=== PATIENT | male | born 1995 | race Caucasian/White ===

== ENCOUNTER 2022-10-08 11:44 | Inpatient (IN) | payer OTHER ==
[~2022-10-08] VITALS: Ht 170.2 cm; Wt 87.3 kg
[2022-10-08 12:36] LABS: HEMATOCRIT 47.6 % (42.0-52.0); HEMOGLOBIN 16.1 g/dl (13.5-17.5); MEAN CORPUSCULAR HEMOGLOBIN 30.4 pg (27.0-33.0); MEAN CORPUSCULAR HGB CONC 33.8 g/dl (32.0-36.5); MEAN CORPUSCULAR VOLUME 89.8 fl (80.0-96.0); PLATELET COUNT, AUTOMATED 351 10^3/uL (150-450); WHITE BLOOD COUNT 6.7 10^3/uL (4.0-10.0)
[2022-10-08 12:59] LABS: ETHYL ALCOHOL (ETHANOL) < 0.003 % (0.000-0.010)
[2022-10-08 13:01] LABS: SALICYLATE LEVEL < 3.0 MG/DL (<30)
[2022-10-08 13:02] LABS: ACETAMINOPHEN LEVEL < 2.0 UG/ML (10.0-20.0); ALBUMIN 4.7 G/DL (3.2-5.2); ALKALINE PHOSPHATASE 106 U/L (46-116); ALT/SGPT 31 U/L (7.0-40); AST/SGOT 16 U/L (<34); BILIRUBIN,DIRECT 0.2 MG/DL (<0.4); BILIRUBIN,TOTAL 0.5 MG/DL (0.3-1.2); BLOOD UREA NITROGEN 16 MG/DL (9-23); CALCIUM LEVEL 9.8 MG/DL (8.5-10.1); CARBON DIOXIDE LEVEL 25 MMOL/L (20-31); CHLORIDE LEVEL 106 MMOL/L (98-107); CREATININE FOR GFR 0.87 MG/DL (0.70-1.30); GLOMERULAR FILTRATION RATE > 60.0 (>60); GLUCOSE, FASTING 72 MG/DL (60-100); POTASSIUM SERUM 4.1 MMOL/L (3.5-5.1); SODIUM LEVEL 136 MMOL/L (136-145); TOTAL PROTEIN 7.8 G/DL (5.7-8.2)
[2022-10-08 13:04] LABS: THYROID STIMULATING HORMONE 1.618 uIU/ML (0.55-4.78)
[2022-10-08 13:10] LABS: AMPHETAMINES LEVEL URINE NEGATIVE (NEGATIVE)
[2022-10-08 13:11] LABS: BARBITURATES URINE NEGATIVE (NEGATIVE); BENZODIAZEPINES URINE NEGATIVE (NEGATIVE); CANNABINOIDS URINE NEGATIVE (NEGATIVE); COCAINE METABOLITE URINE NEGATIVE (NEGATIVE); METHADONE URINE NEGATIVE (NEGATIVE); OPIATES URINE NEGATIVE (NEGATIVE); PHENCYCLIDINE URINE NEGATIVE (NEGATIVE)
[2022-10-08] MEDS ORDERED: traZODone 50 MG TAB PO PRN (13:50)
[2022-10-08] MEDS ORDERED: MAALOX 30 ML SUSP *UDC PO PRN (13:50)
[2022-10-08] MEDS ORDERED: MOM 30ML SUSPENSION UDC PO PRN (13:50)
[2022-10-08] MEDS ORDERED: IBUPROFEN 400MG TAB PO PRN (13:50)
[2022-10-08] MEDS ORDERED: diphenhydrAMINE 25MG CAP PO PRN (13:50)
[2022-10-08] MEDS ORDERED: NICOTINE 21MG/24HR 1 EA TRANSDERMAL TD ONE (13:50)
[2022-10-08] MEDS ORDERED: HOME MED LIST COMPLETE! XX SCH (14:45)
[2022-10-08 15:36] VITALS: BP 128/87
[2022-10-09 05:52] VITALS: BP 136/67
[2022-10-09] MEDS: SERTRALINE HCL 50 MG TAB PO SCH (13:04)
[2022-10-09 18:18] VITALS: BP 141/92
[2022-10-10 06:00] VITALS: BP 113/61
[2022-10-10] MEDS: SERTRALINE HCL 50 MG TAB PO SCH (08:46)
[2022-10-10 16:17] VITALS: BP 144/93
[2022-10-11 05:59] VITALS: BP 125/79
[2022-10-11] MEDS: SERTRALINE HCL 50 MG TAB PO SCH (08:47)
[2022-10-11 16:10] VITALS: BP 125/69
[2022-10-12 06:35] VITALS: BP 123/65
[2022-10-12] MEDS: SERTRALINE HCL 50 MG TAB PO SCH (08:18)
[2022-10-12] MEDS ORDERED: SERT50TA29 PO (08:38)
== END 2022-10-12 11:48 | disposition home or self-care (01) | DRG 885 ==
LOC: EDBD 11:44 → M ED 13:55 → M ED INP 13:58 → M PSY 15:24
PROVIDERS: ADMIT Psychiatry & Neurology Psychiatry; ATTEND Psychiatry & Neurology Psychiatry
DX: F33.9 Major depressive disorder, recurrent, unspecified (principal); R45.851 Suicidal ideations; Z63.4 Disappearance and death of family member; F17.290 Nicotine dependence, other tobacco product, uncomplicated; F10.10 Alcohol abuse, uncomplicated